=== PATIENT | female | born 1985 | race Two or more races ===

== ENCOUNTER 2020-10-29 05:13 | Emergency (ER) | payer MEDICAID, OTHER ==
[~2020-10-29] VITALS: Ht 160 cm; Wt 61.7 kg
[2020-10-29 05:24] VITALS: BP 114/49
== END 2020-10-29 07:56 | disposition left against medical advice (07) ==
LOC: ER 05:13
DX: R20.2 Paresthesia of skin (principal); M79.641 Pain in right hand; M79.642 Pain in left hand; Z53.21 Procedure and treatment not carried out due to patient leaving prior to being seen by health care provider